=== PATIENT | male | born 1995 | race African-American/Black ===

== ENCOUNTER 2018-09-12 10:16 | Day surgery (SDC) | payer OTHER ==
[~2018-09-12 10:16] MED LIST: CEFAZOLIN 2 GM/D5W RTU 2 GM/50 ML RTUPB IV PRN
[2018-09-12] MEDS ORDERED: BUPIVACAINE HCL 0.5 % INJ/PF 30 ML SDV ONE (10:24)
[2018-09-12] MEDS ORDERED: LIDOCAINE 1% INJ-PF (10 MG/ML) 30 ML SDV ONE (10:24)
[2018-09-12] MEDS ORDERED: CEFAZOLIN 2 GM/D5W RTU 2 GM/50 ML RTUPB IV ONE (11:03)
[2018-09-12] MEDS ORDERED: DEXAMETHASONE SOD PHOSPHATE INJ 4 MG/1 ML VIAL ONE (13:05)
[2018-09-12] MEDS ORDERED: FENTANYL CITRATE INJ/PF 100 MCG/2 ML AMPUL ONE (13:05)
[2018-09-12] MEDS ORDERED: ONDANSETRON HCL INJ/PF 4 MG/2 ML SDV ONE (13:05)
[2018-09-12] MEDS ORDERED: MIDAZOLAM 2 MG/2 ML INJ ONE (13:05)
[2018-09-12] MEDS ORDERED: KETOROLAC TROMETHAMINE 60 MG/2 ML SDV ONE (13:05)
[2018-09-12] MEDS ORDERED: ACETAMINOPHEN 1,000 MG/100 ML RTUPB IV ONE (13:06)
[2018-09-12] MEDS ORDERED: PROPOFOL INJ 200 MG/20 ML VIAL IV ONE (13:06)
[2018-09-12] MEDS ORDERED: DIPHENHYDRAMINE HCL 50 MG/ML VIAL IV PRN (13:37)
[2018-09-12] MEDS ORDERED: FENTANYL CITRATE INJ/PF 100 MCG/2 ML AMPUL IV PRN ×3 (13:37)
[2018-09-12] MEDS ORDERED: MORPHINE SULFATE 10 MG/ML INJ IV PRN (13:37)
[2018-09-12] MEDS ORDERED: MEPERIDINE HCL/PF INJ 25 MG/1 ML DISP.SYRIN IV PRN (13:37)
[2018-09-12] MEDS ORDERED: PROMETHAZINE HCL INJ 25 MG/1 ML VIAL IV PRN ×2 (13:37)
[2018-09-12] MEDS ORDERED: SUCCINYLCHOLINE CHLORIDE INJ 200 MG/10 ML VIAL ONE (13:53)
--- NOTE | 2018-09-12 15:34 | OPERATIVE REPORT E ---
Operative Report NAME: ANA GARNETT : 1995 AGE: 23Y DATE OF SURGERY: 09/12/2018 ROOM: PREOPERATIVE DIAGNOSES: 1. Right long finger middle phalangeal fracture. 2. Right long finger boutonniere deformity. POSTOPERATIVE DIAGNOSES: 1. Right long finger middle phalangeal fracture. 2. Right long finger boutonniere deformity. OPERATION: 1. Open treatment, right long finger middle phalanx fracture. 2. Right long finger correction of boutonniere deformity. SURGEON: YADIRA MARLEY M.D. ANESTHESIA: General. ESTIMATED BLOOD LOSS: Minimal. COMPLICATIONS: None. IMPLANTS: Arthrex Micro absorbable suture anchor. INDICATIONS FOR PROCEDURE: The patient is a 23-year-old [employer] who sustained an injury to his right long finger during physical training, resulting in a fracture off the dorsal cortex of the middle phalanx resulting in disruption of the central slip insertion. Over time the lateral bands had subluxed volarly, resulting in a fixed boutonniere deformity. DESCRIPTION OF PROCEDURE: Following induction of a general anesthetic and administration of antibiotics, the patient was positioned supine on the operating room table. Bony prominences were padded. A tourniquet was placed proximally on the right arm but not inflated. The right upper extremity was sterilely prepped with ChloraPrep and draped in standard fashion. The arm was exsanguinated and the tourniquet inflated to 100 mmHg above systolic pressure. A curvilinear incision was made on the proximal interphalangeal joint, extending proximally and distally. A sharp incision was performed through skin, blunt dissection through the subcutaneous tissue. All small vessels were coagulated with bipolar electrocautery. On both sides of the digit the lateral bands were mobilized by incising the transverse retinacular ligaments, allowing the lateral bands to move dorsally. The insertion of the central slip was then visualized. The cortex was missing. Initially attempt was made to perform internal fixation of this piece of bone; however, it was found to be just a small shell of bone not amenable to internal fixation. The majority of it was shelled out and removed. The central slip of the extensor tendon was then advanced 2 mm distally. It was fixed in place with an Arthrex Micro suture anchor which had been impacted into the insertion of the central slip. This restored the continuity of the central slip's position. The finger was taken through a full range of motion. There was firm fixation of the central slip to the middle phalanx, and maintaining the PIP joint in full extension with flexing the distal phalanx the lateral bands were seen to migrate dorsally as expected. The wound was then copiously irrigated. Skin was reapproximated with nylon suture, and 0.25% Marcaine was injected as a digital block for postoperative analgesia. A sterile dressing was applied. A splint was applied to maintain the proximal interphalangeal joint in full extension, allowing free movement of the distal interphalangeal joint. The patient tolerated the procedure well without complications and was brought to the recovery room in stable condition. DICTATING PHYSICIAN: YADIRA MARLEY M.D. [id number] PHY#: [id number] ID: [id number] JOB#: [id number] ACCT: [id number] cc:YADIRA MARLEY M.D. >
--- NOTE | 2018-09-12 16:24 | RADIOLOGY REPORT (SQ) ---
EXAM DESCRIPTION: NO CHG FLUORO; FINGER RIGHT COMPLETED DATE/TIME: 09/12/2018 3:36 pm REASON FOR STUDY: ORIF RT MIDDLE FINGER ASST WITH FLUORO IN OR S62.622A DISPLACED FRACTURE OF MIDDL E PHALANX OF R MID FINGE M20.021 BOUTONNIERE DEFORMITY OF RIGHT FINGER(S) COMPARISON: None. FLUOROSCOPY TIME: 1 seconds 2 images saved to PACS. TECHNIQUE: Intra-operative images acquired during surgical procedure to evaluate progress. NUMBER OF IMAGES: 2 LIMITATIONS: None. FINDINGS: Fluoroscopic images of right phalanx obtained in the operating room. IMPRESSION: IMAGE(S) OBTAINED DURING PROCEDURE. COMMENT: Quality ID 145: Final reports for procedures using fluoroscopy that document radiation exp osure indices, or exposure time and number of fluorographic images (if radiation exposure indices are not available) Please consult full operative report of the attending physician for description of the procedure. TECHNICAL DOCUMENTATION: JOB ID: [id number] [employer]- All Rights Reserved Reading location - IP/workstation name: [email or web address]
--- NOTE | 2018-09-12 16:24 | RADIOLOGY REPORT (SQ) ---
EXAM DESCRIPTION: NO CHG FLUORO; FINGER RIGHT COMPLETED DATE/TIME: 09/12/2018 3:36 pm REASON FOR STUDY: ORIF RT MIDDLE FINGER ASST WITH FLUORO IN OR S62.622A DISPLACED FRACTURE OF MIDDL E PHALANX OF R MID FINGE M20.021 BOUTONNIERE DEFORMITY OF RIGHT FINGER(S) COMPARISON: None. FLUOROSCOPY TIME: 1 seconds 2 images saved to PACS. TECHNIQUE: Intra-operative images acquired during surgical procedure to evaluate progress. NUMBER OF IMAGES: 2 LIMITATIONS: None. FINDINGS: Fluoroscopic images of right phalanx obtained in the operating room. IMPRESSION: IMAGE(S) OBTAINED DURING PROCEDURE. COMMENT: Quality ID 145: Final reports for procedures using fluoroscopy that document radiation exp osure indices, or exposure time and number of fluorographic images (if radiation exposure indices are not available) Please consult full operative report of the attending physician for description of the procedure. TECHNICAL DOCUMENTATION: JOB ID: [id number] [employer]- All Rights Reserved Reading location - IP/workstation name: [email or web address]
[2018-09-12 18:51] VITALS: BP 137/81
== END 2018-09-12 17:10 | disposition home or self-care (01) ==
LOC: OROUT 10:16
PROVIDERS: ATTEND Orthopaedic Surgery
DX: S62.622A Displaced fracture of middle phalanx of right middle finger, initial encounter for closed fracture (principal); X58.XXXA Exposure to other specified factors, initial encounter; Y93.67 Activity, basketball; M20.021 Boutonniere deformity of right finger(s)
CPT/HCPCS: 73140; 26735; 26426; C1713; J2250; J3490; J1100; J1885; J3010; J0330; J2405; J2704; J0690; J0131; 01830